=== PATIENT | male | born 1950 | race Caucasian/White ===

== ENCOUNTER 2023-08-24 15:41 | Outpatient (CLI) | payer MEDICARE | END 2023-08-24 15:42 | disposition home or self-care (01) | LOC: CSHMRI 15:41 | PROVIDERS: ATTEND Family Medicine | DX: M47.26 Other spondylosis with radiculopathy, lumbar region (principal); M48.061 Spinal stenosis, lumbar region without neurogenic claudication; I71.40 Abdominal aortic aneurysm, without rupture, unspecified | CPT/HCPCS: 72148 ==

== ENCOUNTER 2023-08-29 15:17 | Emergency (ER) | payer MEDICARE ==
[~2023-08-29 15:17] MED LIST: Iopamidol 370 76% 100 ML VIAL ONE
[2023-08-29 15:48] LABS: #Basophils 0.1 10x3/uL (0.0-0.2); #Eosinphils 0.2 10x3/uL (0.0-0.5); #Monocytes 0.6 10x3/uL (0.0-1.1); #Neutrophils 3.9 10x3/uL (1.5-8.4); %Basophils 0.9 % (0.0-2.0); %Eosinophils 2.5 % (0.0-6.0); %Lymphocytes 26.5 % (18.0-47.0); %Monocytes 9.2 % (0.0-10.0); %Neutrophils 60.4 % (40.0-75.0); Hematocrit 41.6 % (38.8-50.0); Hemoglobin 13.1 g/dL (13.5-17.5); Mean Corpuscular HGB CONC 31.5 g/dL (32.0-36.0); Mean Corpuscular Hemoglobin 27.8 pg (27.0-33.0); Mean Corpuscular Volume 88.3 fl (81.2-95.1); Mean Platelet Volume 9.1 fl (7.4-10.4); Platelet Count 215 10x3/uL (150-450); RBC Distribution Width 18.1 % (11.5-14.5); Red Blood Cell (RBC) Count 4.71 10x6/uL (4.32-5.72); White Blood Cell (WBC) Count 6.5 10x3/uL (3.5-10.5)
[2023-08-29 16:07] LABS: Troponin I Less than 0.010 ng/mL (< 0.028)
[2023-08-29 16:09] LABS: ALT (SGPT) 17 U/L (8-55); AST (SGOT) 23 U/L (5-34); Albumin 4.2 g/dL (3.4-4.8); Alkaline Phosphatase 127 U/L (40-110); Anion Gap 15 mmol/L (10-20); BUN (Urea Nitrogen) 18 mg/dL (8.4-25.7); Bilirubin, Total 0.2 mg/dL (0.2-1.2); Calc. Creatinine Clearance 0 mL/min (70-130); Calcium 8.8 mg/dL (7.8-10.44); Carbon Dioxide 26 mmol/L (23-31); Chloride 104 mmol/L (98-107); Estimated GFR 30; Globulin 3.3 g/dL (2.4-3.5); Glucose 106 mg/dL (83-110); Potassium 4.4 mmol/L (3.5-5.1); Protein, Total 7.5 g/dL (5.8-8.1); Sodium 141 mmol/L (136-145)
[2023-08-29] MEDS ORDERED: Acetaminophen 500 MG TAB ONE (16:57)
== END 2023-08-29 18:07 | disposition home or self-care (01) ==
LOC: CSHERS 15:17
DX: I71.43 Infrarenal abdominal aortic aneurysm, without rupture (principal); E11.9 Type 2 diabetes mellitus without complications; I10 Essential (primary) hypertension; F17.210 Nicotine dependence, cigarettes, uncomplicated
CPT/HCPCS: 71275; 74174; 80053; 84484; 85025; 93005; Q9967